=== PATIENT | female | born 1980 | race Caucasian/White ===

== ENCOUNTER 2016-03-14 05:42 | Emergency (ER) | payer OTHER ==
[2016-03-14] MEDS ORDERED: AMOXICILLIN 250 MG CAPSULE PO STA (05:52)
[2016-03-14] MEDS ORDERED: ACETAMINOPHEN 500 MG TABLET PO STA (05:53)
[2016-03-14] MEDS ORDERED: ACETAMINOPHEN 500 MG TABLET PO ONE (05:59)
[2016-03-14] MEDS ORDERED: AMOXICILLIN 250 MG CAPSULE PO ONE (06:00)
== END 2016-03-14 06:30 | disposition home or self-care (01) ==
DX: H66.91 Otitis media, unspecified, right ear (principal)
CPT/HCPCS: 99283; A9270

== ENCOUNTER 2018-11-30 12:38 | Emergency (ER) | payer OTHER ==
[2018-11-30 12:45] VITALS: BP 133/83
--- NOTE | 2018-11-30 13:01 | ED Physician Documentation ---
PD HPI PED ILLNESS - Stated complaint Stated Complaint: RT EAR PX - Chief complaint Chief Complaint: Heent - History obtained from History obtained from: Patient - History of Present Illness Timing - onset: Today (Cough and cold for a few days but severe right ear pain starting today which is better after Motrin at home.) Review of Systems Constitutional: denies: Fever Ears: reports: Ear pain. denies: Drainage/discharge Nose: reports: Rhinorrhea / runny nose, Congestion Throat: denies: Sore throat PD PAST MEDICAL HISTORY - Present Medications Home Medications: Ambulatory Orders Medication Instructions Recorded Confirmed Amoxicillin 1,000 mg PO TID #42 capsule 03/14/16 Chlorothiazide 03/14/16 Lisinopril 03/14/16 Sertraline [Zoloft] 03/14/16 Amox/Clav 875/125 [Augmentin] 1 each PO Q12H #20 tablet 11/30/18 - Allergies Allergies/Adverse Reactions: Allergies Allergy/AdvReac Type Severity Reaction Status Date / Time Sulfa (Sulfonamide Allergy Rash Verified 11/30/18 12:45 Antibiotics) - Social History Does the pt smoke?: No Smoking Status: Never smoker PD ED PE NORMAL - Vitals Vital signs reviewed: Yes - General General: Alert and oriented X 3, No acute distress - HEENT HEENT: PERRL, EOMI, Other (severe ROM) - Neck Neck: Supple, no meningeal sign, No bony TTP - Neuro Neuro: Alert and oriented X 3, No motor deficit, Normal speech - Psych Psych: Normal mood, Normal affect Results - Vitals Vitals: Vital Signs - 24 hr 11/30/18 12:43 Temperature 36.5 C Heart Rate 65 Respiratory 14 Rate Blood Pressure 133/83 H O2 Saturation 98 Oxygen O2 Source Room air Departure - Departure Disposition: Home, Self Care Clinical Impression: Otitis media Qualifiers: Otitis media type: suppurative Chronicity: acute Laterality: right Recurrence: recurrent Spontaneous tympanic membrane rupture: without spontaneous rupture Qualified Code(s): H66.004 - Acute suppurative otitis media without spontaneous rupture of ear drum, recurrent, right ear Condition: Good Record reviewed to determine appropriate education?: Yes Instructions: ED Otitis Media Acute Adult Prescriptions: Amox/Clav 875/125 [Augmentin] 1 each PO Q12H #20 tablet Comments: Recheck with your physician in 1 week. Return for new or worsening symptoms. Continue ibuprofen as needed for pain.
== END 2018-11-30 13:06 | disposition home or self-care (01) ==
LOC: ED 12:38
DX: H66.004 Acute suppurative otitis media without spontaneous rupture of ear drum, recurrent, right ear (principal)
CPT/HCPCS: 99282; 99283

== ENCOUNTER 2019-06-14 09:23 | Outpatient (CLI) | payer OTHER ==
[2019-06-14] MEDS ORDERED: GADOBUTROL 7.5 MMOL/7.5 ML VIAL ONE (09:31)
== END 2019-06-14 09:24 | disposition home or self-care (01) ==
LOC: DI 09:23
PROVIDERS: ATTEND Registered Nurse Diabetes Educator
DX: Z53.9 Procedure and treatment not carried out, unspecified reason (principal)